=== PATIENT | female | born 1960 | race Hispanic/Latino ===

== ENCOUNTER 2025-05-28 06:46 | Emergency (ER) | payer OTHER ==
[~2025-05-28] VITALS: Ht 154.9 cm; Wt 63.5 kg
--- NOTE | 2025-05-28 06:52 | ERN ---
General Chief Complaint: Ankle Problem Stated Complaint: LEFT ANKLE INJURY Time Seen by MD: 06:49 Source: patient History of Present Illness Initial Comments 65-year-old female who was going down stairs when she felt something pop in her left ankle. Afterwards she could not put weight on it and it contains an obvious deformity. Allergies: Coded Allergies: No Known Allergies (Unverified Allergy, Unknown, 05/28/25) Past Medical History Past Medical History: Hypertension ROS Dictation Aside from her ankle review of systems is negative. Physical Exam Extremities Comment Obvious left ankle deformity looking like a distal tib-fib fracture. Distal neurovascular intact. MDM MDM: Differential diagnosis: Rationale: Tests considered and ordered secondary to shared decision making include: Previous outside records reviewed: Old ER visits. Risk of complication and/or morbidity or mortality of patient management: None Medications-Per medication reconciliation Need for hospitalization: Patient does not meet criteria for hospitalization. Need for emergency major/minor surgery: No There are no social concerns with this patient. Prescription drug management Prescriptions will include symptomatic care Patient's prior external medical records from other ER visits were reviewed by me as indicated. Prior testing and results from previous visits were reviewed. Prior tests were taken into account with medical decision making and resource utilization, independent historian/historians were used to obtain complete medical history. I independently interpreted the test that were performed, results were reviewed by me and considered findings on radiology if ordered. Medical management and examination interpretation discussions were had by me with other qualified healthcare professionals as indicated for the patient's care. 65-year-old female with left trimalleolar fracture and dislocation on arrival closed neurovascularly intact distally patient was given moderate sedation reduced with good post reduction films, recovered well from sedation, postreduction examination revealed compartments soft 2+ pulses good cap refill placed in posterior splint with stirrups and crutches, consulted orthopedic doctor on-call who reported that he does not do ankle injuries so we referred patient to local orthopedic doctor. Dr Lujan ED Course Orders Procedure Category Date Status Time Ankle 2vws Lt RAD 05/28/25 Resulted 06:50 Propofol 20ml Vial PHA 05/28/25 Complete (Diprivan 20ml Vial) 07:30 Ankle 2vws Lt RAD 05/28/25 Resulted 07:43 Morphine 2mg Syg PHA 05/28/25 Complete (Morphine 2mg Syg) 09:00 Ketorolac PHA 05/28/25 Complete Tromethamine 15mg/Ml 09:00 Current Medications Medications (Trade) Dose Ordered Sig/[place] Route PRN Reason Start Time Stop Time Status Last Admin Dose Admin Ketorolac Tromethamine (toRADol) 15 mg ONCE ONCE IV 05/28/25 09:00 05/28/25 09:01 DC 05/28/25 09:13 Morphine Sulfate (morPHINE 2MG SYG) 2 mg ONCE ONCE IVP 05/28/25 09:00 05/28/25 09:01 DC 05/28/25 09:13 Propofol (DIPRivan 20ML VIAL) 200 mg ONCE ONCE IV 05/28/25 07:30 05/28/25 07:31 DC 05/28/25 08:31 Vital Signs Date Time Temp Pulse Resp B/P (MAP) Pulse Ox O2 Delivery O2 Flow Rate FiO2 05/28/25 10:15 98.1 55 19 153/73 98 Room Air* 0 21 05/28/25 09:10 98.1 59 19 168/68 97 Room Air* 0 05/28/25 07:11 98.1 47 16 124/68 97 Room Air* 0 05/28/25 06:52 98.8 65 18 122/66 99 Room Air* 0 05/28/25 06:47 97.9 46 16 122/67 98 Room Air 0 Procedure Dictation Moderate sedation procedure, 23 minutes of total time pre and post evaluation and observation with nurse and respiratory therapist at bedside was given a total of 60 mg of propofol x1 and patient achieved RASS of negative three for brief 2-3 minutes well procedure was performed no complications. Joint Reduction Joint Reduction : Conscious Sedation: Yes Reduction Attempts: 1 Pre-Procedure NV Exam: Yes Post-Procedure NV Exam: Yes post joint reduction film: joint reduced Progress Left ankle fracture dislocation reduced with traction counter traction good post reduction exam DX & DISP Disposition: Discharge Departure Impression: Primary Impression: Closed left trimalleolar fracture Condition: Stable Scripts Cyclobenzaprine HCl (Flexeril) 10 Mg Tab 10 MG PO DAILY for muscle sstiffness, #10 TAB 0 Refills Prov: REBEKAH WILSON MD 05/28/25 Naproxen (Naproxen) 250 Mg Tablet 250 MG PO BID for 5 Days, #10 TAB Prov: REBEKAH WILSON MD 05/28/25 Referrals: ALON LUJAN MD Time of Disposition: 10:22 SHALA RUST MD May 28, 2025 06:52 REBEKAH WILSON MD May 28, 2025 10:22
--- NOTE | 2025-05-28 07:40 | HMCIMG ---
EXAM: CR right ankle, 2 View. CLINICAL HISTORY: deformity COMPARISON: None provided. FINDINGS: BONES: There is a fracture of the lateral malleolus and the medial malleolus. There is a fracture of the posterior malleolus. There is mild post-dislocation of the tibia around the Ankle joint. Medial subluxation of the distal tibiofibular joint. JOINTS: The joint spaces appear asymmetrically reduced. SOFT TISSUES: The soft tissues are edematous. IMPRESSION: There is a trimalleolar fracture. There is mild post-dislocation of the tibia around the Ankle joint. Mild subluxation of the distal tibiofibular joint. /Olean
--- NOTE | 2025-05-28 08:57 | HMCIMG ---
EXAM: CR right ankle, 2 View. CLINICAL HISTORY: POST REDUCTION COMPARISON: None provided. FINDINGS: BONES: There is a fracture of the distal fibula and medial malleolus, and posterior malleolus JOINTS: The joint spaces appear mildly asymmetrical. No dislocation. No radiographic evidence of a joint effusion. SOFT TISSUES: The soft tissues are unremarkable. IMPRESSION: Trimalleolar Fracture with post-reduction of ankle dislocation. /[place]
[2025-05-28 10:15] VITALS: BP 153/73; PULSE 55; RESP 19; TEMP 98.1; O2SAT 98
[2025-05-28] MEDS ORDERED: NAPR-1196 PO (10:22)
[2025-05-28] MEDS ORDERED: CYCL10TA16 PO (10:22)
== END 2025-05-28 10:50 | disposition home or self-care (01) ==
LOC: EDH 06:46
DX: S82.852A Displaced trimalleolar fracture of left lower leg, initial encounter for closed fracture (principal); S93.05XA Dislocation of left ankle joint, initial encounter; I10 Essential (primary) hypertension; X50.1XXA Overexertion from prolonged static or awkward postures, initial encounter; Y93.89 Activity, other specified; Y92.89 Other specified places as the place of occurrence of the external cause; Y99.8 Other external cause status
CPT/HCPCS: 27818; 99153; 73600 ×2; 99152; 99285; 96374; 96375; J1885; J2270; J2704; J3490